=== PATIENT | male | born 1960 | race Caucasian/White ===

== ENCOUNTER 2017-03-30 18:22 | Emergency (ER) | payer SELFPAY ==
[~2017-03-30] VITALS: Ht 165.1 cm; Wt 82.3 kg
[2017-03-30 19:18] VITALS: BP 127/82
--- NOTE | 2017-03-30 19:25 | NUR ---
PT AMBULATED TO ER BED 2
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
[2017-03-30] MEDS ORDERED: LIDOCAINE MPF 1% - **ER/OR** 5 ML ONE (19:35)
[2017-03-30] MEDS ORDERED: BACITRACIN OINT 500 UNITS/GM PKT TP ONE (20:04)
[2017-03-30 21:00] VITALS: BP 125/75
--- NOTE | 2017-03-30 21:00 | NUR ---
Patient discharged with v/s stable BY DR. WALL. Written and verbal after care instructions given and explained BY DR. WALL. Patient verbalized understanding. Ambulatory with steady gait. All questions addressed prior to discharge BY DR. WALL, Advised to follow up with PMD BY DR. WALL
== END 2017-03-30 21:00 | disposition home or self-care (01) ==
LOC: MED 18:22
DX: S01.112A Laceration without foreign body of left eyelid and periocular area, initial encounter (principal); V89.9XXA Person injured in unspecified vehicle accident, initial encounter; Y93.89 Activity, other specified; Y92.89 Other specified places as the place of occurrence of the external cause; Y99.8 Other external cause status
CPT/HCPCS: 12011; 70450; 99284; J2001

== ENCOUNTER 2017-04-21 09:17 | Emergency (ER) | payer SELFPAY ==
[~2017-04-21] VITALS: Ht 162.6 cm; Wt 83.9 kg
[2017-04-21 09:22] VITALS: BP 116/83
--- NOTE | 2017-04-21 09:23 | NUR ---
PT TAKEN TO CHAIR A
--- NOTE | 2017-04-21 09:25 | NUR ---
57/M presents to ED for suture removal. Pt states he had sutures placed 2 weeks ago. No drainage noted, no erythema. Denies medical hx.
[2017-04-21 09:49] VITALS: BP 116/83
--- NOTE | 2017-04-21 09:49 | NUR ---
Patient discharged with v/s stable. Written and verbal after care instructions given and explained. Patient verbalized understanding. Ambulatory with steady gait. All questions addressed prior to discharge. Advised to follow up with PMD.
== END 2017-04-21 09:49 | disposition home or self-care (01) ==
LOC: MED 09:17
DX: S01.112D Laceration without foreign body of left eyelid and periocular area, subsequent encounter (principal); Z88.8 Allergy status to other drugs, medicaments and biological substances; X58.XXXD Exposure to other specified factors, subsequent encounter
CPT/HCPCS: 99281

== ENCOUNTER 2022-02-13 08:55 | Emergency (ER) | payer OTHER ==
[~2022-02-13] VITALS: Ht 165.1 cm; Wt 81.6 kg
[2022-02-13 09:03] VITALS: BP 124/68
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
--- NOTE | 2022-02-13 09:44 | NUR ---
CONTACTED [facility], SPOKE WITH [facility][id number] TO FILE REPORT. STATED IF PT GETS ADMITTING TO CALL THEM BACK. IF NOT, HAVE PT COME TO [facility] TO FILE REPORT. PT NOTIFIED.
[2022-02-13] MEDS ORDERED: FLUORESCEIN OPTH STRIP 1 MG OP ONE (10:05)
[2022-02-13] MEDS ORDERED: ACETAMINOPHEN EXTRA STRENGTH 500 MG TAB PO ONE (10:05)
[2022-02-13] MEDS ORDERED: TETRACAINE HCL/PF 0.5% OPTH 4 ML BTL OP ONE (10:05)
[2022-02-13] MEDS ORDERED: TOMOMETER 1 DEV DEV MC ONE (11:51)
--- NOTE | 2022-02-13 12:07 | NUR ---
MOVED TO CHAIR B
[2022-02-13] MEDS ORDERED: IBUP-2213 PO (12:12)
[2022-02-13 12:30] VITALS: BP 128/85
== END 2022-02-13 12:30 | disposition home or self-care (01) ==
LOC: EDBD → MED 08:55 → MERGE 08:55 → MED 12:30
DX: S02.2XXA Fracture of nasal bones, initial encounter for closed fracture (principal); S05.11XA Contusion of eyeball and orbital tissues, right eye, initial encounter; S09.90XA Unspecified injury of head, initial encounter; Z88.6 Allergy status to analgesic agent; Z79.899 Other long term (current) drug therapy; Y04.2XXA Assault by strike against or bumped into by another person, initial encounter; Y93.89 Activity, other specified; Y92.89 Other specified places as the place of occurrence of the external cause; Y99.8 Other external cause status
CPT/HCPCS: 70480; 99284